=== PATIENT | male | born 1970 | race Caucasian/White ===

== ENCOUNTER 2017-06-29 18:34 | Emergency (ER) | payer MEDICARE, OTHER ==
[~2017-06-29] VITALS: Ht 172.7 cm; Wt 81.8 kg
[2017-06-29 18:54] VITALS: Ht 172.7 cm; Wt 81.8 kg
[2017-06-29] MEDS ORDERED: LORAZEPAM 1 MG TAB PO ONE (19:30)
--- NOTE | 2017-06-29 19:54 | ERD ---
ER Documentation Chief Complaint Chief Complaint EDEN SALAZAR,wants to go back to longterm but PD wouldn't to take him,called 911 HPI This is a 46-year-old homeless gentleman who presents to the emergency room with multiple complaints. The patient is a very difficult historian. It appears EMS states that he was called because he told the police officers he wanted to go to longterm with police officers were not taken to longterm. The patient then initially reported chest pain but then refuted this. When the paramedics asked him again he states I am just saying that because I need to go somewhere. Upon arrival the patient again reports chest pain but he does not want to characterize the chest pain. Then he states that he does not have chest pain. He denies any suicidal or homicidal ideation. He denies any fevers or chills cough or congestion. ROS All systems reviewed and are negative except as per history of present illness. Allergies Allergies: Coded Allergies: risperidone (Verified Allergy, Unknown, 06/29/17) trazodone (Verified Allergy, Unknown, 06/29/17) PMhx/Soc Hx Psychiatric Problems: Yes (Schizophrenia) Hx Alcohol Use: No Hx Substance Use: No Hx Tobacco Use: No Smoking Status: Never smoker FmHx Family History: No diabetes Physical Exam Vitals Vital Signs Date Time Temp Pulse Resp B/P Pulse Ox O2 Delivery O2 Flow Rate FiO2 06/29/17 18:54 98.4 91 18 115/73 99 Physical Exam General: Malodorous and disheveled but no acute distress Head: Normocephalic, atraumatic. Eyes: Pupils equally reactive, EOM intact ENT: Moist mucous membranes Neck: Supple, no lymphadenopathy Respiratory: Lungs clear bilaterally, no distress Cardiovascular: RRR, no murmurs, rubs, or gallops Abdominal: Soft, non-tender, non-distended, no peritoneal signs : Deferred MSK: No edema, no unilateral swelling, 5/5 strength Neurologic: Alert and oriented, moving all extremities, normal speech, no focal weakness, no cerebellar signs Skin: No rash Psych: Normal mood, no SI or HI Results 24 hrs Current Medications Medications (Trade) Dose Ordered Sig/Heather Route PRN Reason Start Time Stop Time Status Last Admin Dose Admin Lorazepam (Ativan) 1 mg ONCE ONCE PO 06/29/17 19:30 06/29/17 19:31 DC 06/29/17 19:20 Procedures/MDM EKG, MONITORS, & DIAGNOSTIC IMAGING: EKG: I reviewed and interpreted a 12-lead EKG. Rhythm: Normal sinus rhythm Ectopy: None Intervals: No abnormalities ST segments: No elevations or depressions T waves: No contiguous inversions Chest x-ray: I reviewed and interpreted a 1 view of the chest Mediastinum: No enlargement Cardiac silhouette: No cardiomegaly Airspace: Clear lung giles bilaterally without evidence of pneumothorax Bones: No evidence of fracture LAB INTERPRETATION: Patient is refusing laboratory testing MEDICAL DECISION MAKING: The patient presents with likely malingering. The patient is intermittent and inconsistent with his history. The patient admitted to the paramedics that he was nursing home seeking. The patient had reported chest pain however when asked about his chest pain he states that never mind he is not having chest pain. I do not believe that the patient's presentation is consistent with acute coronary syndrome, pulmonary embolism, dissection, pneumonia or pneumothorax. However given that the patient is reporting this I believe he would benefit from screening including laboratory testing, EKG, troponin and chest x-ray. ER COURSE: The patient was agreeable to EKG and chest x-ray but is refusing laboratory testing. He was advised that we cannot rule out acute coronary syndrome without the laboratory testing despite low pretest probability. The patient verbalizes understanding. He was offered food and drink and states that he would just like to be discharged. Patient is not a danger to himself or others. I believe the chest pain is secondary to malingering and not consistent with acute organic pathology such as acute coronary syndrome. The patient is noncompliant with examination and workup here in the emergency room and will be discharged. I kept the patient and/or family informed of laboratory and diagnostic imaging results throughout the emergency room course. DISPOSITION PLAN: We discussed follow up with the patient's primary care doctor within 24 to 48 hours as needed. We also discussed return to the emergency room for worsening symptoms or worsening condition. Outpatient referral: [None required] Departure Diagnosis: Primary Impression: Malingering Additional Impressions: Anxiety Chest pain Chest pain type: unspecified Qualified Code: R07.9 - Chest pain, unspecified type Condition: Stable Patient Instructions: Anxiety Reaction Referrals: COMMUNITY CLINICS YOU HAVE RECEIVED A MEDICAL SCREENING EXAM AND THE RESULTS INDICATE THAT YOU DO NOT HAVE A CONDITION THAT REQUIRES URGENT TREATMENT IN THE EMERGENCY DEPARTMENT. FURTHER EVALUATION AND TREATMENT OF YOUR CONDITION CAN WAIT UNTIL YOU ARE SEEN IN YOUR DOCTORS OFFICE WITHIN THE NEXT 1-2 DAYS. IT IS YOUR RESPONSIBILITY TO MAKE AN APPOINTMENT FOR FOLOW-UP CARE. IF YOU HAVE A PRIMARY DOCTOR --you should call your primary doctor and schedule an appointment IF YOU DO NOT HAVE A PRIMARY DOCTOR YOU CAN CALL OUR PHYSICIAN REFERRAL HOTLINE AT IF YOU CAN NOT AFFORD TO SEE A PHYSICIAN YOU CAN CHOSE FROM THE FOLLOWING [facility] [address] [facility] [address] [facility]. [facility] [address] [facility] [address] [facility] [address] [facility]. [facility] [address] [facility]. [facility] YOU HAVE RECEIVED A MEDICAL SCREENING EXAM AND THE RESULTS INDICATE THAT YOU DO NOT HAVE A CONDITION THAT REQUIRES URGENT TREATMENT IN THE EMERGENCY DEPARTMENT. FURTHER EVALUATION AND TREATMENT OF YOUR CONDITION CAN WAIT UNTIL YOU ARE SEEN IN YOUR DOCTORS OFFICE WITHIN THE NEXT 1-2 DAYS. IT IS YOUR RESPONSIBILITY TO MAKE AN APPOINTMENT FOR FOLOW-UP CARE. IF YOU HAVE A PRIMARY DOCTOR --you should call your primary doctor and schedule and appointment IF YOU DO NOT HAVE A PRIMARY DOCTOR YOU CAN CALL OUR PHYSICIAN REFERRAL HOTLINE AT . IF YOU CAN NOT AFFORD TO SEE A PHYSICIAN YOU CAN CHOSE FROM THE FOLLOWING [facility]: [facility] [address] [place] [address] [facility] [address] [place] [address] [facility] + [facility] [address] [place] [address] Additional Instructions: Call your primary care doctor TOMORROW for an appointment during the next 1 WEEK.Tell the national secretary that you were referred from this facility.See the doctor sooner or return here if your condition worsens before your appointment time. BRAD MADRIGAL MD Jun 29, 2017 19:54
--- NOTE | 2017-06-29 20:20 | RADRPT ---
PROCEDURE: XR Chest. CLINICAL INDICATION: Chest Pain. TECHNIQUE: Single frontal view of the chest was obtained COMPARISON: None FINDINGS: The heart and mediastinum are within normal limits. The lungs are clear. There is no pleural effusion or pneumothorax. The osseous structures are unremarkable. IMPRESSION: 1. No acute cardiopulmonary disease. RPTAT:AAJJ Physician Trevor Date Time Electronically viewed and signed by Jeanette Tinoco Physician on 06/29/2017 20:20 QL/
== END 2017-06-29 21:09 | disposition home or self-care (01) ==
LOC: E/R 18:34
DX: F41.9 Anxiety disorder, unspecified (principal); Z76.5 Malingerer [conscious simulation]
CPT/HCPCS: 71010; 93005